=== PATIENT | female | born 1955 | race Caucasian/White ===

== ENCOUNTER → 2019-08-17 | Day surgery (SDC) | payer OTHER ==
--- NOTE | 2019-08-15 22:22 | Pre Op History & Physical ---
PLANNED PROCEDURE DATE: 08/17/2019. CHIEF COMPLAINT: Chronic sinusitis and epistaxis. HISTORY OF PRESENT ILLNESS: This 64-year-old female has been having right-sided bleeding from the nose since April of 2019. The patient has no nasal obstruction. She complained of nasal obstruction nightly with postnasal drip and the nose bleed usually is self-limiting. The patient has no history of trauma to the area. The patient has some chronic sinus infection. Her condition has been treated with saline gel, humidifier and also antibiotics with no improvement. A CT scan of paranasal sinuses done before surgery showed the patient has chronic sinusitis mainly involving the right maxillary sinus. No other abnormality was noted in terms of tumors or mass. REVIEW OF SYSTEMS: System review showed no recent cardiovascular, respiratory, or GI problem. PAST MEDICAL HISTORY: The patient has type 2 diabetes and hypertension. PAST SURGICAL HISTORY: The patient has a previous , left oophorectomy, left thyroidectomy. ALLERGIES: SHE HAS NO ALLERGY TO MEDICATION. MEDICATIONS: She is on chlorthalidone, Bystolic, amlodipine, Synthroid, rosuvastatin. SOCIAL HISTORY: Nonsmoker, nondrinker. FAMILY HISTORY: Noncontributory. PHYSICAL EXAMINATION: VITAL SIGNS: On examination, patient's vital signs were within normal limits. HEENT: Ear exam show normal tympanic membrane bilaterally. Nasal exam showed deviated nasal septum the right side anteriorly about 20% with a septal spur in the left side about 20%. Oropharynx and oral cavity show 1+ tonsils bilaterally with Mallampati level two. NECK: Showed no lymph node or thyroid palpable. CHEST: Showed good air entry bilaterally. CARDIOVASCULAR: Showed S1 and S2. No murmur noted. ASSESSMENT AND PLAN: Ms. Gallo has chronic sinusitis, right-sided epistaxis, nasal obstruction, which has been resistant to conservative therapy. The suggested treatment is septoplasty. Endoscopic nasal examination of the nose to rule out any bleeding area and right maxillectomy and removal of polyp and maxillary antrum and other necessary procedure. The complication of procedure includes, but not limited to bleeding, infection, CSF leak, blindness, double vision, meningitis, septal perforation, septal hematoma, persistent nasal obstruction, persistent nasal crusting, nasal deformity, recurrence of the sinus problem and persistence of epistaxis. The alternate will be continue observation, continue antibiotic therapy, topical nasal steroid therapy, systemic steroid therapy decongestant and control of epistaxis in the office setting. The patient and her has elected to undergo surgical procedure. MD VIKI Kate/ADIN /[id number]
[~2019-08-17] MED LIST: ACETAMINOPHEN/CODEINE 300MG - 30MG TAB ONE; AZOR 5-40 MG T1 EACH PO; BYSTOLIC10 MG PO; CHLORTHALIDONE25 MG PO; CRESTOR10 MG PO; DEXAMETHASONE SOD PHOS INJ 4 MG/ML VIAL ONE; EPINEPHRINE HCL 1:1000 1ML 1 MG/ML AMP ONE; FENTANYL CITRATE/PF 100MCG/2 ML INJ ONE; LIDOCAINE 1% W/EPINEPHRINE 20 ML VIAL ONE; LIDOCAINE HCL 2% LOCAL INJ 5 ML SDV VIAL INJ ONE; MIDAZOLAM HCL 2 MG/2 ML VIAL ONE; ONDANSETRON HCL INJ 2MG/ML 2ML 2 MG/ML VIAL ONE; PROPOFOL IV EMULSION 10 MG/ML 20 ML VIAL ONE; SEVOFLURANE INHAL SOLN 250 ML PEN BTL ONE; SUCCINYLCHOLINE 200 MG/10 ML SYR ONE; SYNTHROID125 MCG PO; TRULICITY1.5 MG/0.5 SQ
--- OUTSIDE RECORDS SUMMARY | 2019-08-17 10:59 | XMS REPORT ---
Author Author [facility] Address Unknown Phone Unavailable Care Team Providers Care Employment Agency Manager Name Role Phone Anthony Mukherjee Unavailable Unavailable Ceasar, Arik Unavailable Unavailable Elmer Fong Unavailable Unavailable Problems This patient has no known problems. Allergies, Adverse Reactions, Alerts This patient has no known allergies or adverse reactions. Medications This patient has no known medications. Results Test Description Test Time Test Comments Text Results Atomic Results Result Comments 3D SCR NICKI BILAT W/CAD 2018-09-16 10:19:00 [place] [address] [facility] REPORT Name: AVTAR GOMES Acct Number: [id number] :1955 Age:63 Sex:F Ord Phys: Iglesia Mukherjee MD Unit Number: [id number] [facility] Dr: Status: REG REF RAD Exam Date: 09/08/18 EXAM DESCRIPTION: NICKI - 3D SCR NICKI BILAT W/CAD - 09/08/2018 4:55 pm COMPARISON: May 2017 TECHNIQUE: CC and MLO views of each breast were obtained as a screening study utilizing digital breast tomosynthesis and 2D imaging. Computer-aided detection was utilized. FINDINGS: A mildly prominent, symmetric breast parenchymal pattern is present. No dominant mass or suspicious microcalcification clusters. A few benign areas of nodularity are present. No significant or suspicious changes from prior imaging. IMPRESSION: 1. No mammographic evidence for malignancy. 2. Annual mammography is the recommendation for the patient. BI-RAD: 1 Negative. ResultCode: N *A negative x-ray report should not delay biopsy if a dominant or clinically suspicious mass is present. 4.8% of cancers a re not identified by x-ray. *A negative report may reinforce a clinical impression. *Adenosis and dense breasts may obscure an underlying neoplasm. *False positive reports average 6-10%. Category Diagnosis 0=Incomplete: Needs Additional Imaging Evaluation, 1=Negative, 2=Benign, 3=Probably Benign, 4=Suspicious Abnormality, 5=Highly Suspicious of Malignancy, 6=Known Biopsy Proven Malignancy. Signed By: Rick Hankins MD Signed AT: 09/16/18 1020 Breast Bilat W Wo Cont 2018-03-06 17:37:00 [place] [address] [facility] REPORT Name: AVTAR GOMES Acct Number: [id number] :1955 Age:62 Sex:F Ord Phys: Arik Mcdonough MD Unit Number: [id number] [facility] Dr: Status: REG REF RAD Exam Date: 03/06/18 EXAM DESCRIPTION: MRI - Breast Bilat W Wo Cont - 03/06/2018 1:48 pm CLINICAL HISTORY: I60.10, N63.24 COMPARISON: Breast MRI 07/18/2017 Breast sonography 11/14/2017, 06/23/2017. Mammography 05/30/2017, 03/28/2016, 11/09/2014 FINDINGS: Scattered fibroglandular densities are seen. Small enhancing lesion seen central left breast has not significantly changed in size measuring 5 x 5 mm. Additional small sub-centi meter foci of enhancement bilaterally also appear unchanged. Elsewhere, no significant enhancing lesion is detected. Enhancing lymph nodes in both axillary tail regions are again seen, without significant adverse change. Overall, suspicion for a developing malignancy is very low. No nipple inversion, ductal ectasia or skin thickening. Small sub-centimeter benign cysts are present bilaterally. IMPRESSION: Small enhancing foci in both breasts show no significant change since 07/18/2017 study. Overall, suspicion for a developing malignancy is very low. Recommendation: Annual mammographic follow-up. BI-RAD: 2 ResultCode: B Category Diagnosis 0=Incomplete: Needs Additional Imaging Evaluation, 1=Negative, 2=Benign, 3=Probably Benign, 4=Suspicious Abnormality, 5=Highly Suspicious of Malignancy, 6=Known Biopsy Proven Malignancy. Signed By: Josef Pavon MD Signed AT: 03/06/18 1738 Creatinine measurement 2018-03-06 12:11:00 Creatinine measurement (test xrpc=[id number]) 0.77 mg/dL 0.44-1.00 The creatinine method used has been calibrated to be traceable to Isotope dilution Mass Spectrometry (IDMS). For more information: www.nkdep.nih.gov Estimated glomerular filtration rate (GFR) determination (test opun=96115-8) 76 mL =/>90 FOR CHRONIC KIDNEY DISEASE: GFR STAGE DESCRIPTION=/>90 STAGE 1 NORMAL--OR-- MINIMAL KIDNEY DAMAGE WITH NORMAL GFR 60-89 STAGE 2 MILD DECREASE IN GFR 30-59 STAGE 3 MODERATE DECREASE IN GFR 15-29 STAGE 4 SEVERE DECREASE IN GFR <15 STAGE 5 KIDNEY FAILURE The Glomerular Filtration Rate (GFR) has been calculated using the IDMS-Traceable MDRD Study Equation. BREAST/AXILLA, [id number] 11:03:00[facility] [place] [address] [facility] REPORT Name: AVTAR GOMES Acct Number: [id number] :1955 Age:62 Sex:F Ord Phys: Arik Mcdonough MD Unit Number: [id number] [facility] Dr: Status: REG REF RAD Exam Date: 11/14/17 EXAM DESCRIPTION: US - BREAST/AXILLA, LIMITED - 11/14/2017 9:51 am COMPARISON: Breast MRI June 2017, breast ultrasound June 2017, mammogram May 2017. FINDINGS: In the periareolar left breast there are numerous 2-4 mm round or oval hypoechoic to anechoic masses. The oval masses have a long axis parallel to the chest wall. These are all believed to be very small incidental cysts. In the 7-8 o'clock left breast an 8 mm oval anechoic mass is present near the skin surface. An additional 7-8 mm anechoic to hypoechoic mass is present in the 8 o'clock left breast closer to the nipple. The June 2017 ultrasound demonstrated a small oval mass closer to the chest wall. That finding could not be reproduced on today's study. None of today's findings are considered suspicious. No solid or irregular mass lesion is identifiable. Definitive correlation between the mammogram, ultrasound and MRI imaging cannot be made. Probability of a neoplastic or aggressive left breast finding is felt to be low. The June mammogram recommended a six-month MR follow-up to monitor the bilateral enhancing nonspecific foci. IMPRESSION: 1. Small anechoic to hypoechoic masses felt to be most likely small cysts. 2. Definitive correlation between mammography, sonography and MR imaging cannot be made. 3. Likelihood of malignancy or aggressive breast process is felt to be quite low. The June MR examination has a recommendation for a 6 month MR follow-up. If the MR follow-up is unremarkable or shows no change, the patient probably does not need any further ongoing diagnostic monitoring. BI-RAD: Category 3 probably benign MR follow-up ResultCode: PB3 Category Diagnosis 0=Incomplete: Needs Additional Imaging Evaluation, 1=Ne gative, 2=Benign, 3=Probably Benign, 4=Suspicious Abnormality, 5=Highly Susp icious of Malignancy, 6=Known Biopsy Proven Malignancy. Signed By: Rick Baird MD Signed AT: 11/16/17 1103 Breast Bilat W Wo Cont 2017-07-18 19:39:00[facility] [place] [address] [facility] REPORT Name: AVTAR GOMES Acct Number: [id number] :1955 Age:62 Sex:F Ord Phys: Arik Mcdonough MD Unit Number: [id number] [facility] Dr: Status: REG REF RAD Exam Date: 07/18/17 EXAM DESCRIPTION: MRI bilateral breast with contrast CLINICAL HISTORY: Indeterminate mammographic and sonographic findings. N63 COMPARISON: Mammography 05/30/2017. Ultrasound 06/23/2017. FINDINGS: Scattered fibroglandular densities are seen. A 5 x 5 mm focus of enhancement is seen 12 o'clock middle depth left breast. Small 10 x 5 mm enhancing lesion is seen the lower inner right breast middle to posterior depth. No nipple inversion, ductal ectasia or skin thickening. IMPRESSION: Small enhancing lesions are seen bilaterally, nonspecific at this small size. The 12 o'clock middle depth left breast enhancing lesion appears to correlate with the lesion detected on a 05/30/2017 mammogram. Six-month follow-up breast MRI examination is recommended. BI-RADS category 3, probably benign. Signed By: Josef Pavon MD Signed AT: 07/18/17 1940 Creatinine measurement 2017-07-17 17:58:00* Test Item Value Reference Range Comments Creatinine measurement (test qbra=[id number]) 1.20 mg/dL 0.44-1.00 The creatinine method used has been calibrated to be traceable to Isotope dilution Mass Spectrometry (IDMS). For more information: www.nkdep.nih.gov Estimated glomerular filtration rate (GFR) determination (test vosj=91173-5) 46 mL =/>90 FOR CHRONIC KIDNEY DISEASE: GFR STAGE DESCRIPTION=/>90 STAGE 1 NORMAL--OR-- MINIMAL KIDNEY DAMAGE WITH NORMAL GFR 60-89 STAGE 2 MILD DECREASE IN GFR 30-59 STAGE 3 MODERATE DECREASE IN GFR 15-29 STAGE 4 SEVERE DECREASE IN GFR <15 STAGE 5 KIDNEY FAILURE The Glomerular Filtration Rate (GFR) has been calculated using the IDMS-Traceable MDRD Study Equation. BREAST/AXILLA, [place] [address] RAD[facility]OLOGY SERVICES REPORT Name: AVTAR GOMES Acct Number: [id number] :1955 Age:62 Sex:F Ord Phys: Elmer Fong MD Unit Number: [id number] [facility] Dr: Status: REG REF RAD Exam Date: 06/23/17 EXAM DESCRIPTION: US - BREAST/AXILLA, LIMITED - 06/23/2017 11:08 am CLINICAL HISTORY: ICD R92.8. COMPARISON: May 30, 2017. FINDINGS: Within the 8 o'clock position of the left breast 6 cm from the nipple is 7mm lobulated hypoechoic mass. In addition there is a 5 mm cyst within the 8 o'clock position 4 mm from the left nipple. IMPRESSION 1. A 7 mm lobulated hypoechoic mass within the 8 o'clock position of the left breast does not represent a simple cyst. It may represent a benign complex cyst. It is unclear whether this corresponds to the abnormality seen on the recent mammogram. It is recommended that the patient have a follow up left mammogram and left breast ultrasound in 6 months for re-evaluation. 2. An additional 5 mm left breast cyst is benign. 3. BI-RADS probably benign BI-RADS 3 ResultCode: PB6 Signed By: Dominik Gillis MD Signed AT: 07/03/17 1053 3D SCR NICKI BILAT W/[place] [address] Name: AVTAR GOMES Phys: Elmer Fong MD THOA : 1955 Age: 61 Sex:F Acct: [id number] Loc: RAD Exam Date: 05/30/17 Status: REG REF Radiology Number: Unit Number: [id number] EXAM DESCRIPTION: NICKI - 3D SCR NICKI BILAT W/CAD - 05/30/2017 11:23 am TECHNIQUE: CC and MLO views of each breast were obtained utilizing digital breast tomosynthesis and 2D imaging. Computer-aided detection was utilized. FINDINGS: The breasts contain mild fibroglandular tissue. Within the slightly inner left breast posteriorly is a 1 cm lobulated density. No dominant mass is seen with right breast. No suspicious cluster of microcalcifications are seen. IMPRESSION: 1. A 1 cm lobulated density within the slightly inner left posterior breast. It is recommended that the patient have an ultrasound for further evaluation. 2. Benign-appearing right breast. 3. BI-RADS category 0, incomplete. BI-RAD: 0 ResultCode: I *A negative x-ray report should not delay biopsy if a dominant or clinically suspicious mass is present. 4.8% of cancers are not identified by x-ray. *A negative report may reinforce clinical impression. *Adenosis and dense breasts may obscure an underlying neoplasm. *False positive reports average 6-10%. Category Diagnosis 0=Incomplete: Needs Additional Imaging Evaluation, 1=Negative, 2=Benign, 3=Probably Benign, 4=Suspicious Abnormality, 5=Highly Suspicious of Malignancy, 6=Known Biopsy Proven Malignancy Signed By: Dominik Gillis MD Signed AT: 05/08 1608
[2019-08-17 14:15] VITALS: BP 151/86
--- NOTE | 2019-08-17 23:22 | Operative Report ---
DATE OF PROCEDURE: 08/17/2019 SURGEON: Hao Saunders MD PREOPERATIVE DIAGNOSES: Chronic sinusitis, nasal obstruction and epistaxis. POSTOPERATIVE DIAGNOSES: Chronic sinusitis, nasal obstruction and epistaxis. OPERATIVE PROCEDURE: Right maxillary sinus antrostomy, right resection of inflamed tissue and maxillary antrum and septoplasty. ANESTHESIA: [facility]. INDICATIONS: This 64-year-old female has history of nasal obstruction post nasal drip and epistaxis. The patient's condition has been followed over the past 6 months and treated with more than 12 weeks of antibiotics, topical nasal steroid decongestant, but no improvement. On examination, she was noted to have a deviated nasal septum to the right side anteriorly about 20% with a septal spur on the left. A raw area was noted in the anterior nasoseptal area and the Little's area. CT scan of paranasal sinuses done before surgery showed the patient has maxillary sinus involvement with a large cystic lesion in the maxillary sinus and confirmed the nasal septum. It was decided that endoscopic sinus surgery, septoplasty, and other necessary procedure will be beneficial for her. DESCRIPTION OF PROCEDURE: The patient was taken to the operating room, put under general anesthesia, endotracheally intubated. The nose was injected with 1% Xylocaine with 1:100,000 epinephrine for hemostasis. An epinephrine-soaked pledget was inserted in the nose and subsequently removed. The right paranasal sinuses were approached. The natural ostium of maxillary sinus was entered. This was enlarged anteriorly and posteriorly using backbiter and Thru-Cut forceps respectively. In the area posterior to the maxillary natural ostium, a large cystic lesion was noted in the inferior medial portion of the maxillary sinus antrum. This was dissected using the micro shaver. A septoplasty was performed. A hemitransfixion incision was done on the left side. The mucoperichondrial flap was elevated on the left. The bony cartilaginous junction was encountered and this was . Perpendicular plate of ethmoid was transected, this was then removed along with the vomer. The cartilaginous portion was removed using a [place] elevator. The bony spur was removed using the [place]. The quadrangular cartilage after being freed from posterior-inferior constraint was able to swing back into the midline. The hemitransfixion incision was closed using 4-0 chromic suture in the interrupted fashion. The septal whipstitch was tied using 4-0 plain gut suture to reapproximate the mucoperichondrial flap and prevent septal hematoma formation. was noted in the right mucoperichondrial flap, this was approximated using the NasoPore. NasoPore was inserted in the sinus cavity on the right side to prevent synechiae formation and for hemostasis. The patient tolerated the above procedure well with estimated blood loss about 20 mL. She was given 20 mg of Decadron intraoperatively. The patient was able to be transferred to the recovery room in stable condition. MD VIKI Kate/MODL /[id number]
== END | disposition home or self-care (01) ==
LOC: OR 10:18
PROVIDERS: ATTEND Otolaryngology Otolaryngology/Facial Plastic Surgery
DX: J32.0 Chronic maxillary sinusitis (principal); J34.89 Other specified disorders of nose and nasal sinuses; R04.0 Epistaxis; G47.33 Obstructive sleep apnea (adult) (pediatric); E11.9 Type 2 diabetes mellitus without complications; E78.5 Hyperlipidemia, unspecified; I10 Essential (primary) hypertension
CPT/HCPCS: 30520; 31267; 36415; 82948; 88300; 88305; 93005; J0171; J1100; J2001; J2250; J2405; J2704; J3010; 88304